=== PATIENT | female | born 1970 | race Hispanic/Latino ===

== ENCOUNTER 2018-11-02 10:10 | Emergency (ER) | payer OTHER ==
--- NOTE | 2018-11-02 10:52 | RAD ---
Portable frontal chest radiograph: 11/02/2018 COMPARISON: None HISTORY: Cough FINDINGS: Lungs are clear. Heart and mediastinal contours appear within normal limits. IMPRESSION: No acute findings.
== END 2018-11-02 12:27 | disposition home or self-care (01) ==
LOC: ERS 10:10
DX: J98.01 Acute bronchospasm (principal)
CPT/HCPCS: 36415; 71045; 85379

== ENCOUNTER 2018-11-05 01:13 | Emergency (ER) | payer OTHER, SELFPAY | END 2018-11-05 01:43 | disposition home or self-care (01) | LOC: ERS 01:13 | DX: F45.8 Other somatoform disorders (principal) | CPT/HCPCS: 99283 ==

== ENCOUNTER 2018-11-09 14:01 | Emergency (ER) | payer OTHER, SELFPAY ==
[2018-11-09] MEDS ORDERED: Azithromycin 250 MG TAB ONE (15:00)
[2018-11-09] MEDS ORDERED: Dexamethasone 4 mg/ml Vial ONE (15:01)
[2018-11-09] MEDS ORDERED: Albuterol Sulfate 2.5 mg/0.5 ml Neb ONE (15:06)
[2018-11-09] MEDS ORDERED: Succinylcholine Chloride 20 MG/ML 10 ml SYRINGE FS ONE (19:02)
== END 2018-11-09 17:17 | disposition home or self-care (01) ==
LOC: ERS 14:01
DX: J45.909 Unspecified asthma, uncomplicated (principal); J20.9 Acute bronchitis, unspecified; Z79.51 Long term (current) use of inhaled steroids; Z79.899 Other long term (current) drug therapy
CPT/HCPCS: 93005; 94640; 96372; J1100; J7611; J7620

== ENCOUNTER 2018-11-10 02:48 | Observation (INO) | payer OTHER ==
[2018-11-10 04:33] LABS: ALT (SGPT) 23 U/L (8-55); AST (SGOT) 24 U/L (5-34); Albumin 4.3 g/dL (3.5-5.0); Alkaline Phosphatase 105 U/L (40-150); Anion Gap 14 mmol/L (10-20); BUN (Urea Nitrogen) 7 mg/dL (7.0-18.7); Bilirubin, Total 0.6 mg/dL (0.2-1.2); Calc. Creatinine Clearance 0 mL/min (70-130); Calcium 10.3 mg/dL (7.8-10.44); Carbon Dioxide 20 mmol/L (22-29); Chloride 105 mmol/L (98-107); Estimated GFR-MDRD Greater than 90; Globulin 3.8 g/dL (2.4-3.5); Glucose 132 mg/dL (70-105); Potassium 4.1 mmol/L (3.5-5.1); Protein, Total 8.1 g/dL (6.0-8.3); Sodium 135 mmol/L (136-145)
[2018-11-10 04:35] LABS: Band 7 % (5-11); Hemoglobin 14.5 g/dL (12.0-16.0); Lymphocytes 14 % (21-51); MDiff Complete? YES; Mean Corpuscular HGB CONC 32.3 g/dL (32.0-36.0); Mean Corpuscular Hemoglobin 27.9 pg (27.0-31.0); Mean Corpuscular Volume 86.3 fL (78.0-98.0); Mean Platelet Volume 7.9 fL (7.4-10.4); Monocytes 2 % (0-10); Neutrophil 77 % (42-75); Platelet Count 314 thou/uL (130-400); RBC Distribution Width 12.8 % (11.5-14.5); Red Blood Cell (RBC) Count 5.21 mill/uL (4.20-5.40); White Blood Cell (WBC) Count 12.4 thou/uL (4.8-10.8)
[2018-11-10] MEDS ORDERED: Aspirin Chewable 81 MG TAB ONE (06:36)
--- NOTE | 2018-11-10 07:11 | CT ---
CT SOFT TISSUES OF NECK WITH IV CONTRAST: Date: 11/10/18 INDICATION: History of sore throat. COMPARISON: None. FINDINGS: No pathologically enlarged lymph nodes are evident. There is a small, 2.8 cm, calcific density within the subcutaneous tissues of the right cheek that may reflect an embedded foreign body. Dental amalga m limits evaluation of oral cavities. The visualized palatine and sublingual tonsils appear within no rmal limits. Parotid, submandibular, and thyroid glands are normal appearing. Visualized aerodigestiv e tract is clear. The paranasal sinuses are clear. Visualized intracranial contents and orbits appear within normal limits. Lung apices are clear. No acute osseous abnormalities noted. IMPRESSION: 1. No acute abnormality. 2. Small embedded calcific density within the subcutaneous tissues of the right cheek may reflect a small foreign body. POS: BH
--- NOTE | 2018-11-10 07:20 | CT ---
CT BRAIN WITHOUT CONTRAST: Date: 11/10/18 INDICATION: Sore throat and head pain. COMPARISON: None. FINDINGS: No acute infarct, hemorrhage, or hydrocephalus is present. No midline shift is evident. Mastoid air c ells and paranasal sinuses are clear. IMPRESSION: No acute intracranial abnormality. POS: BH
--- NOTE | 2018-11-10 07:21 | RAD ---
CHEST 1 VIEW: Date: 11/10/18 INDICATION: History of itching and pain and sore throat with shortness of breath. COMPARISON: Exam compared to prior dated 11/02/18. FINDINGS: Lungs are clear. Heart size is normal. No acute osseous abnormality is evident. IMPRESSION: No acute abnormality. POS: BH
[2018-11-10 07:29] LABS: Troponin I Less than 0.010 ng/mL (< 0.028)
[2018-11-10 10:20] LABS: Troponin I 0.012 ng/mL (< 0.028)
[2018-11-10] MEDS ORDERED: ISOVUE-370 76%-LOCM 1 ML ONE (10:57)
[2018-11-10 14:37] VITALS: BMI 39.9
[2018-11-10] MEDS ORDERED: Ondansetron PF 4 MG/2 ML Vial IVP PRN (15:31)
[2018-11-10] MEDS ORDERED: Ondansetron ODT 4 MG TAB SL PRN (15:31)
[2018-11-10] MEDS ORDERED: Acetaminophen 325 MG TAB PO PRN (15:32)
[2018-11-10] MEDS: Pantoprazole 40 MG VIAL IVP SCH (20:07)
--- NOTE | 2018-11-10 23:05 | HP ---
CHIEF COMPLAINT: Sore throat and hoarseness. HISTORY OF PRESENT ILLNESS: The patient is a 48-year-old female, with no significant past medical history, who presents to the hospital with complaints of sore throat and hoarseness and cough, which have been going on for the past one month. The patient states that she has been in and out of the ER about 4 times and recently appointment with Pulmonology for her cough and hoarseness. The patient states that she has been to the ER a few times and has been given some steroids, breathing treatments, which have helped her cough for about a couple of hours and her symptoms; however, they tend to come back. The patient states that she denies any fevers or chills. She states that her cough is dry and sometimes she does have a clear to yellow phlegm. She denies any weight loss. The patient states that she has been having some heartburn which has been ongoing for a while; however, now she is trying to eat healthy and her heartburn is much controlled. She denies any recent chemical exposures. 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 Her symptoms persist at work and at home. Normally, she was able to lie flat, however, now she is unable to lie flat due to increased cough which wakes her up. PAST MEDICAL HISTORY: She denies any past medical history. PAST SURGICAL HISTORY: She has had a hysterectomy and a cholecystectomy. ALLERGIES: SHE HAS NO KNOWN DRUG ALLERGIES. MEDICATIONS: She takes none. FAMILY HISTORY: No history of heart disease, cancer, or strokes. REVIEW OF SYSTEMS: All negative except for the ones mentioned above in the HPI. SOCIAL HISTORY: She denies any smoking history, any alcohol use, any drug use. She is a full code. She lives with her and she works as a cook. PHYSICAL EXAMINATION: VITAL SIGNS: Are as of the following; temperature of 97.8, pulse 77, respirations 16, oxygen saturation 98% on room air, blood pressure 130/78. GENERAL: She is awake, alert, and oriented x3. Does not appear in any distress. HEENT: Normocephalic, atraumatic. No lymphadenopathy noted. She does have mild swelling of her left tonsils. However, I did not appreciate any erythema. CV: S1, S2 present. No murmurs, rubs, or gallops. LUNGS: Clear to auscultation. No rhonchi or wheezes noted. ABDOMEN: Soft and obese. Bowel sounds are present x2. No pain upon palpation. EXTREMITIES: No edema. Pedal pulses are present x2. NEUROVASCULAR: No focal deficits noted. SKIN: No cuts, lesions, or bruises noted. LABORATORY RESULTS: WBCs of 12.4, hemoglobin of 14.4, hematocrit of 44.9, platelets of 314. Chemistry; sodium of 135, potassium of 4.1, BUN of 7, creatinine 0.67. LFTs are normal. Troponin x3 are negative. She did have a CT of the neck, which indicated no acute abnormalities. A small embedded calcified density within the subcutaneous tissue of the right cheek, may reflect a small foreign body. She also had a CT brain and a chest x-ray. CT brain did not show any acute abnormalities and chest x-ray did not show any acute abnormalities. ASSESSMENT AND PLAN: The patient is a 48-year-old female, who presents to the hospital with cough and hoarseness for about a month. 1. Cough/hoarseness. This could be secondary to possible either reflux related versus allergies versus possible asthma versus calcified density that was noted on the CAT scan. The patient's lungs appear to be clear to auscultation. I am not sure if she is having bronchospasms. She is currently not on any prescription medications which could be causing this. Her has some goats and she works as a cook. I do not think that will be contributing to her symptoms. However, she does have seasonal allergies and she states that prior she would just take some allergy medication which would relieve her symptoms. I will go ahead and consult Pulmonology to get their input. The other option would be to get an ENT to evaluate the cause of her hoarseness and her cough. 2. Obesity. We will continue to monitor. 3. Deep venous thrombosis prophylaxis. We will put the patient on SCDs and subcu heparin. Job ID: [id number]
[2018-11-11] MEDS: Pantoprazole 40 MG VIAL IVP SCH (08:08)
[2018-11-11 08:37] VITALS: BP 165/90; TEMP 97.9
[2018-11-11] MEDS ORDERED: Enoxaparin Sodium 40 MG/0.4 ML SYRINGE SC SCH (09:00)
--- NOTE | 2018-11-12 13:40 | DIS ---
DATE OF ADMISSION: 11/10/2018 DATE OF DISCHARGE: 11/11/2018 DISCHARGE DIAGNOSES: 1. Cough. 2. Hoarseness. 3. Sore throat. 4. Obesity. 5. History of reflux. HISTORY OF PRESENT ILLNESS: The patient is a 48-year-old female, who had presented to the emergency department with several weeks of ongoing hoarseness with some cough and some mild discomfort in the throat area. She had a white count of 12.4. Labs were otherwise unremarkable. CT of the neck was negative. CT brain, chest x-ray were negative. HOSPITAL COURSE: The patient was admitted for cough and hoarseness. She was started on some p.o. azithromycin and prednisone. She was also given some PPI for the possibility of reflux. Following day, the patient's symptoms had essentially unchanged. However, there was no evidence of significant underlying pathology warranting ongoing hospitalization. I had a long conversation with the patient and recommended that she follow up with ENT. We also had a long discussion regarding her need to have a low acid anti-reflux diet and lifestyle, which she indicated understanding. PHYSICAL EXAMINATION: At the time of discharge, VITAL SIGNS: Temperature is 97.9, respirations 20, O2 saturation 99% on room air, BP was 165/90. Her documented pulse was 140, however, that was not what was auscultated. Her heart rate was in the 70s at the time of my exam. She does have some hoarseness of phonation. HEENT: PERRL. No OP lesions. NECK: Supple and symmetric. No thyromegaly or lymphadenopathy. HEART: Regular rate and rhythm without murmurs, gallops, or rubs. LUNGS: Clear to auscultation bilaterally. ABDOMEN: Benign. DISPOSITION: The patient is discharged home. DISCHARGE INSTRUCTIONS: She is to have an activity as tolerated. She will continue on a regular low acid diet with small meals and avoid eating close to bedtime. She will follow up with Dr. Major, which was previously scheduled for the patient. I encouraged her also to follow up with Dr. Jasper Harley as an outpatient as well as Dr. Gilbert Ventura, her PCP. She will be on omeprazole 20 mg daily, prednisone 40 mg daily, azithromycin 250 daily. She can return to the hospital should she have any significant problems prior to the time of her followup. Job ID: [id number]
== END 2018-11-11 10:59 | disposition home or self-care (01) ==
LOC: ERS 02:48 → ERHOLD 06:22 → 2SW 14:25
PROVIDERS: ADMIT Hospitalist; ATTEND Hospitalist
DX: J02.9 Acute pharyngitis, unspecified (principal); E66.9 Obesity, unspecified; Z68.39 Body mass index [BMI] 39.0-39.9, adult; Z79.899 Other long term (current) drug therapy
CPT/HCPCS: 31575; 36415; 70450; 70491; 71045; 80053; 84484; 85025; 87081; 87430; 93005; 94760; 96372; 96374; 96376; C9113; G0378; J1650; Q9966

== ENCOUNTER 2018-12-09 14:22 | Outpatient (CLI) | payer OTHER | END 2018-12-09 14:23 | disposition home or self-care (01) | LOC: CP 14:22 | PROVIDERS: ATTEND Internal Medicine | DX: J40 Bronchitis, not specified as acute or chronic (principal); K21.9 Gastro-esophageal reflux disease without esophagitis; G47.33 Obstructive sleep apnea (adult) (pediatric); R05 Cough | CPT/HCPCS: 94010; 94727; 94729 ==

== ENCOUNTER 2019-05-31 03:05 | Emergency (ER) | payer OTHER ==
[2019-05-31 06:55] LABS: Free T4 (Free Thyroxine) 0.89 ng/dL (0.70-1.48); Thyroid Stimulating Hormone 6.4837 uIU/mL (0.35-4.94)
[2019-05-31 06:56] LABS: #Basophils 0.1 thou/uL (0.0-0.2); #Eosinphils 0.2 thou/uL (0.0-0.7); #Lymphocytes 2.9 thou/uL (1.20-3.40); #Monocytes 0.6 thou/uL (0.11-0.59); #Neutrophils 4.9 thou/uL (1.40-6.50); %Basophils 1.1 % (0.0-1.0); %Eosinophils 1.9 % (0.0-10.0); %Monocytes 7.3 % (0.0-10.0); %Neutrophils 56.7 % (42.0-75.0); BHCG - Serum Negative (NEGATIVE); Hemoglobin 14.6 g/dL (12.0-16.0); Mean Corpuscular HGB CONC 34.3 g/dL (32.0-36.0); Mean Corpuscular Hemoglobin 28.8 pg (27.0-31.0); Mean Platelet Volume 8.3 fL (7.4-10.4); Platelet Count 283 thou/uL (130-400); Pregs Control Background? CLEAR/WHITE (CLR/WHITE); Pregs Control Bar Appear? YES (CONTROL BAR); RBC Distribution Width 13.2 % (11.5-14.5); Red Blood Cell (RBC) Count 5.07 mill/uL (4.20-5.40); White Blood Cell (WBC) Count 8.6 thou/uL (4.8-10.8)
[2019-05-31 06:58] LABS: ALT (SGPT) 15 U/L (8-55); AST (SGOT) 19 U/L (5-34); Alkaline Phosphatase 106 U/L (40-110); Anion Gap 13 mmol/L (10-20); BUN (Urea Nitrogen) 8 mg/dL (7.0-18.7); Bilirubin, Total 0.3 mg/dL (0.2-1.2); Calc. Creatinine Clearance 0 mL/min (70-130); Calcium 9.1 mg/dL (7.8-10.44); Carbon Dioxide 24 mmol/L (22-29); Chloride 106 mmol/L (98-107); Estimated GFR-MDRD 88; Globulin 3.7 g/dL (2.4-3.5); Glucose 125 mg/dL (70-105); Potassium 3.4 mmol/L (3.5-5.1); Protein, Total 7.7 g/dL (6.0-8.3); Sodium 140 mmol/L (136-145); Troponin I Less than 0.010 ng/mL (< 0.028)
--- NOTE | 2019-05-31 07:50 | RAD ---
XR Chest 1 View Portable HISTORY: Chest pain COMPARISON: 11/10/2018 FINDINGS: The heart size is normal. The lungs are well expanded without focal areas of consolidation, pneumothorax or pleural effusions. IMPRESSION: No radiographic evidence of acute cardiopulmonary process.
== END 2019-05-31 05:06 | disposition home or self-care (01) ==
LOC: ERS 03:05
DX: R07.9 Chest pain, unspecified (principal); R00.2 Palpitations; K21.9 Gastro-esophageal reflux disease without esophagitis; Z79.899 Other long term (current) drug therapy
CPT/HCPCS: 71045; 80053; 84439; 84443; 84484; 84703; 85025; 85379

== ENCOUNTER 2019-10-13 11:55 | Emergency (ER) | payer OTHER ==
[2019-10-14 12:15] LABS: SARS-CoV-2 MS2 Positive; SARS-CoV-2 N Gene Positive; SARS-CoV-2 S Gene Positive; SARS-CoV-2 orf1ab Positive
== END 2019-10-13 12:24 | disposition home or self-care (01) ==
LOC: ERS 11:55
DX: U07.1 COVID-19 (principal); K21.9 Gastro-esophageal reflux disease without esophagitis
CPT/HCPCS: 87635; 99283; U0003